=== PATIENT | male | born 1985 | race Caucasian/White ===

== ENCOUNTER 2017-07-01 01:18 | Emergency (ER) | payer SELFPAY ==
[~2017-07-01] VITALS: Ht 172.7 cm; Wt 89.0 kg
[~2017-07-01 01:18] MED LIST: ALPR.25 PO; CITA20 PO; HYDR-3534 PO; PROP10TA6 PO; VIST50CA PO
[2017-07-01 01:19] VITALS: BP 136/87; PULSE 132; RESP 20; TEMP 98.2; O2SAT 98
--- NOTE | 2017-07-01 02:24 | PD ---
HPI Chief Complaint: Skin Problem Time Seen by Provider: 01:36 Travel History International Travel<30 days: No Contact w/Intl Traveler<30days: No Traveled to known affect area: No History of Present Illness HPI Patient is a 31-year-old male presenting to the emergency department for evaluation of a lump to his left lateral thigh that has been there for 3 years. Patient states he rolled over in bed and felt pain so he came to the emergency department. He reports his pain is a 4 out of 10, it has since resolved. Patient denies any fever, chills, redness, swelling, drainage. It has not changed in the last several years. He has no other complaints. PFSH Past Medical History Anxiety: Yes Depression: Yes Diminished Hearing: No Past Surgical History Oral Surgery: Yes (wisdom teeth removed) Social History Alcohol Use: No Tobacco Use: Yes (1ppd) Substance Use: Yes (lortabs recreationally, h/o marijuana) Allergies-Medications (Allergen,Severity, Reaction): Coded Allergies: No Known Allergies (Unverified , 03/11/15) Reported Meds & Prescriptions Reported Meds & Active Scripts Active Vistaril (Hydroxyzine Pamoate) 50 Mg Cap 50 Mg PO Q6HR PRN Reported Lortab 7.5 mg/325 mg (Hydrocodone/Acetaminophen 7.5 mg/325 mg) 1 Tab 1 Tab PO Q4H PRN Xanax 0.25 Mg (Alprazolam) Alprazolam 0.25 mg Tab 1 Tab PO Q6H PRN Propranolol (Propranolol HCl) 10 Mg Tab 10 Mg PO DAILY Celexa 20 Mg Tab (Citalopram Hydrobromide) 20 Mg Tab 20 Mg PO DAILY Review of Systems Except as stated in HPI: all other systems reviewed are Neg Skin: Positive Lumps Physical Exam Narrative GENERAL: Well-developed, well-nourished, alert male. Presenting in no acute distress. SKIN: Warm and dry. 0.5 centimeter movable, firm mass to lateral aspect of left upper leg. No induration, erythema, fluctuance noted. Nontender to palpation. HEAD: Normocephalic. EYES: No scleral icterus. No injection or drainage. NECK: Supple, trachea midline. No JVD or lymphadenopathy. CARDIOVASCULAR: Regular rate and rhythm without murmurs, gallops, or rubs. RESPIRATORY: Breath sounds equal bilaterally. No accessory muscle use. GASTROINTESTINAL: Abdomen soft, non-tender, nondistended. MUSCULOSKELETAL: No cyanosis, or edema. BACK: Nontender without obvious deformity. No CVA tenderness. Data Data Last Documented VS Vital Signs Date Time Temp Pulse Resp B/P (MAP) Pulse Ox O2 Delivery O2 Flow Rate FiO2 07/01/17 01:19 98.2 132 20 136/87 (103) 98 MDM Medical Decision Making Medical Screen Exam Complete: Yes Emergency Medical Condition: Yes Interpretation(s) Vital Signs Date Time Temp Pulse Resp B/P (MAP) Pulse Ox O2 Delivery O2 Flow Rate FiO2 07/01/17 01:19 98.2 132 20 136/87 (103) 98 Differential Diagnosis Lipoma versus cyst versus abscess versus other Narrative Course Patient is a 31-year-old male presenting to the emergency department for evaluation of a limp to his leg is been there for 3 years. There is no sign of infection, exam appears consistent with a lipoma. Patient was encouraged to follow-up with a primary doctor or miter cutter. Patient was tachycardic on arrival, his heart rate was reassessed prior to discharge at 101. A medical screening exam was performed: At the time of evaluation the presenting medical condition was determined not to be of an emergent nature. The patient was given the option of receiving additional care, but declined. Patient was given options for additional community resources from which to obtain care. The Patient Has Been advised to seek medical attention for their presenting complaint. The patient has been advised to return to the ER at any time if an emergent condition develops. Diagnosis Primary Impression: Encounter for medical screening examination Condition: Stable Marisol Carlson Jul 01, 2017 02:24
== END 2017-07-01 02:24 | disposition left against medical advice (07) ==
LOC: NEPD 01:18
DX: R22.42 Localized swelling, mass and lump, left lower limb (principal); F41.9 Anxiety disorder, unspecified; F32.9 Major depressive disorder, single episode, unspecified; F17.200 Nicotine dependence, unspecified, uncomplicated; Z79.899 Other long term (current) drug therapy
CPT/HCPCS: 99281